=== PATIENT | female | born 2005 | race Caucasian/White ===

== ENCOUNTER 2025-02-26 16:35 | Emergency (ER) | payer OTHER, SELFPAY ==
--- NOTE | 2025-02-26 16:37 | XRR_ITS ---
PROCEDURE INFORMATION: Exam: XR Left Shoulder Exam date and time: 02/26/2025 5:50 PM Age: 19 years old Clinical indication: Pain; Shoulder; Left TECHNIQUE: Imaging protocol: Radiologic exam of the left shoulder. Views: 2 or more views. COMPARISON: CR XR chest 1V portable [id number] 02/26/2025 5:47 PM FINDINGS: Bones/joints: Normal. Soft tissues: Normal. XR/XR shoulder LT min 2V* [id number] IMPRESSION: No identified osseous abnormality.
--- NOTE | 2025-02-26 16:38 | ECG_ITS ---
[employer] Test Date: 2025-02-26 Pat Name: Mague Lee Department: Room: Gender: Female [employer]: : 2005 Requested By: Monroe Scott Order Number: [id number] Maria Fernanda MD: Yves Almanza M.D. Measurements Intervals [place] Rate: 80 P: 73 RI: 125 QRS: 73 QRSD: 84 T: 89 QT: 311 QTc: 360 Interpretive Statements SINUS RHYTHM NONSPECIFIC T-WAVE ABNORMALITY No previous ECG available for comparison Electronically Signed On 03-03-2025 11:49:18 CDT by Yves Almanza M.D. [email or web address] [id number]
[2025-02-26 16:59] VITALS: BP 110/73; PULSE 92; RESP 17; TEMP 36.8; O2SAT 99; BMI 22.8
--- NOTE | 2025-02-26 17:23 | ED_ITS ---
HPI - URI/Sore Throat General: Chief Complaint: Upper Respiratory Infection Stated Complaint: L shoulder pain Time Seen by Provider: 02/26/25 17:23 History of Present Illness: 19-year-old presents emergency room with complaints of left shoulder pain and chest discomfort. Worse when she talks or takes a deep breath really does not affect when she moves her arm at all no recent trauma. She did recently have some upper respiratory symptoms along with fever body aches chills for a couple of days that is mostly resolved. During that time her temp got up to 102. No recent trauma or falls no hemoptysis. Associated symptoms: Reports chest pain; Deny abdominal pain, chills or fever(s) Related Data Previous Rx's ?Medication ?Instructions ?Recorded diclofenac sodium 75 mg 75 mg PO Q12H PRN pain #20 t abs 02/26/25 tablet,delayed release Allergies Allergy/AdvReac Type Severity Reaction Status Date / Time No Known Allergies Allergy Verified 10/05/22 12:41 Review of Systems Const: Denies: fever(s) or chills Card: Reports: chest pain Resp: Denies: dyspnea GI: Denies: abdominal pain : Denies: dysuria, urinary frequency or urinary urgency Musc: Denies: neck pain or back pain Skin/Breast: Denies: rash PFSH ED PFSH: Social History Smoking and tobacco/nicotine status: never used tobacco/nicotine Second hand smoke exposure: No Alcohol intake: never Substance/Drug Use: never Physical Exam Const: GENERAL APPEARANCE: cooperative ORIENTATION/CONSCIOUSNESS: Yes awake, Yes oriented to person, Yes oriented to place and Yes oriented to time HENMT: COMMON NORMALS: normocephalic, atraumatic and hearing grossly normal bilaterally HEAD & SCALP: normocephalic and atraumatic Resp: COMMON NORMALS: normal respiratory effort, No retractions, No use of accessory muscles and clear to auscultation bilaterally AUSCULTATION: clear to auscultation bilaterally Cardio: COMMON NORMALS: regular rate, regular rhythm and No murmurs present (Cardio) RATE: regular rate RHYTHM: regular rhythm GI: COMMON NORMALS: Soft to palpation and No hepatosplenomegaly present AUSCULTATION: Yes normoactive bowel sounds PALPATION: Yes Soft to palpation, No Tenderness to palpation present (GI), No Guarding due to palpation present (GI) and Yes No hepatosplenomegaly present Extremity: COMMON NORMALS: normal to inspection, capillary refill normal, no clubbing, cyanosis or edema, no calf tenderness and no pedal edema OTHER: No pain with range of motion in the left shoulder negative impingement sign Neuro: SENSORIUM/ORIENTATION: Yes oriented to person, Yes oriented to place and Yes oriented to time Skin: COMMON NORMALS: no rashes or lesions noted GENERAL SKIN EXAM: no rashes or lesions noted Course Vital Signs: Vital signs: Vital Signs Temperature 98.2 F 02/26/25 16:59 Pulse Rate 92 02/26/25 16:59 Respiratory Rate 17 02/26/25 16:59 Blood Pressure 110/73 02/26/25 16:59 Pulse Oximetry 99 02/26/25 16:59 Oxygen Delivery Me thod Room Air 02/26/25 16:59 MDM - URI/Sore Throat Medical Decision Making Pain reproducible with deep inspiration cough and actually even talking. I cannot reproduce pain with motion in the arm. Chest x-ray shoulder x-ray are unremarkable. Patient given pain medications here discharged home with diclofenac follow-up with primary care Medical Records I reviewed the patient's medical records. Lab Data I reviewed the patient's lab results. Radiology Impressions Shoulder X-Ray 02/26/25 16:37 IMPRESSION: No identified osseous abnormality. Chest X-Ray 02/26/25 17:23 IMPRESSION: No visualized acute cardiopulmonary process. All radiology interpretation(s) finalized by discharge Discharge Plan Discharge Patient Disposition: Home Clinical Impression: Viral infection, Pleuritic chest pain Condition: Stable Prescriptions: New diclofenac sodium 75 mg tablet,delayed release (DR/EC) 75 mg PO Q12H PRN (Reason: pain) Qty: 20 0RF Discharge Orders: Discharge ED (Routine); Ordered 02/26/25 Ordered By: Monroe Ahumada Discharge Diet: Usual diet Discharge Activity: Resume usual activity Patient Instructions: Opioid Safety, Pain Management Activity Restrictions/Additional Instructions: Thank you for choosing [facility] for your healthcare needs today. It is very important that you follow up as instructed or that you return to the Emergency Department should you have concerns or if your condition changes or worsens in any way. You are seen in the emergency room with complaints of chest discomfort with deep inspiration is likely from recent viral infection you can use diclofenac as needed. Print Language: Hungarian Coding Level of Care Code ED Application Support Administrator for Sabi Barreto
--- NOTE | 2025-02-26 17:23 | XRR_ITS ---
PROCEDURE INFORMATION: Exam: XR Chest Exam date and time: 02/26/2025 5:47 PM Age: 19 years old Clinical indication: Cough and dyspnea; Additional info: Dyspnea/cough TECHNIQUE: Imaging protocol: Radiologic exam of the chest. Views: 1 view. COMPARISON: CR XR chest 2V* [id number] 06/18/2024 2:21 PM FINDINGS: Lungs: Unremarkable. No consolidation. Pleural spaces: Unremarkable. No pleural effusion. No pneumothorax. Heart/Mediastinum: Unremarkable. No cardiomegaly. Bones/joints: Unremarkable. XR/XR chest 1V portable [id number] IMPRESSION: No visualized acute cardiopulmonary process.
[2025-02-26] MEDS: HYDROcodone-acetaminophen 5-325 mg Tablet 1 TAB PO (18:25)
== END 2025-02-26 18:28 | disposition home or self-care (01) ==
PROVIDERS: Emergency Provider Family Medicine
DX: B34.9 Viral infection, unspecified (principal); R07.81 Pleurodynia
CPT/HCPCS: 71045; 73030; 93005; 99284; J9999

== ENCOUNTER 2025-08-24 09:07 | Outpatient (CLI) | payer OTHER, SELFPAY ==
[2025-08-24 10:40] LABS: Hematocrit 43.0 % (36-47); Hemoglobin 14.60 g/dL (12.4-14.8); Mean Corpuscular HGB Conc 34.0 g/dL (30-55); Mean Corpuscular Hemoglobin 28.6 pg (27-33); Mean Corpuscular Volume 84.3 fl (85-98); Nucleated Red Blood Cells % 0 %; Platelet Count 333 10^3/cmm (157-399); Red Blood Count 5.10 10^6/uL (3.85-5.65); White Blood Count 4.68 10^3/uL (4.5-13.0)
[2025-08-24 10:45] LABS: HCG Qualitative Urine. Negative (Negative)
[2025-08-24 11:04] LABS: HCG, Serum Qual Negative (Negative)
[2025-08-24 11:13] LABS: Alanine Aminotransferase 14 U/L (0-33); Albumin Level 5.0 g/dL (3.5-5.2); Alkaline Phosphatase 75 U/L (35-105); Anion Gap 12.4 (5-19); Aspartate Amino Transferase 15 U/L (0-32); Blood Urea Nitrogen 9 mg/dL (6-20); Calcium 9.5 mg/dL (8.5-10.5); Carbon Dioxide 28 mmol/L (22-29); Chloride 103 mmol/L (98-107); Cholesterol 185 mg/dL (0-200); Globulin 3.1 g/dL (1.3-4.6); Glucose 88 mg/dL (65-115); HDL Cholesterol 53 mg/dL (60-100); Osmolality Calculated 286 mOsm/kg (285-295); Potassium 4.4 mmol/L (3.5-5.1); Sodium 139 mmol/L (136-145); Total Protein 8.1 g/dL (6.6-8.7); Triglycerides 70 mg/dL (0-150)
== END 2025-08-24 09:08 | disposition home or self-care (01) ==
PROVIDERS: PCP Family Medicine; Visit Provider Nurse Practitioner Family
DX: L70.0 Acne vulgaris (principal); L90.5 Scar conditions and fibrosis of skin
CPT/HCPCS: 80053; 80061; 81025; 84703; 85025